=== PATIENT | female | born 1950 | race African-American/Black ===

== ENCOUNTER 2023-09-20 19:19 | Emergency (ER) | payer OTHER ==
[~2023-09-20] VITALS: Ht 162.6 cm; Wt 45.0 kg
[2023-09-20 19:28] VITALS: O2SAT 98
[2023-09-20 20:04] LABS: BASOPHILS % 0.8 % (0.0-2.0); EOSINOPHILS % 5.9 % (0.0-5.0); HEMATOCRIT. 29.3 % (36.0-48.0); HEMOGLOBIN. 9.5 g/dL (12.0-16.0); LYMPHOCYTES % 11.5 % (20.0-50.0); MEAN CORPUSCULAR HEMOGLOBIN 29.7 pg (28.0-32.0); MEAN CORPUSCULAR HGB CONC 32.3 g/dL (31.0-37.0); MEAN CORPUSCULAR VOLUME 91.8 fL (81.0-99.0); MEAN PLATELET VOLUME 8.7 fl (7.4-10.4); MONOCYTES % 3.3 % (2.0-8.0); NEUTROPHILS % 78.5 % (40.0-76.0); PLATELET 251 x1000/uL (130-400); RED BLOOD CELL COUNT 3.19 mill/uL (4.2-5.4); RED CELL DISTRIBUTION WIDTH 13.9 % (11.6-14.6); WHITE BLOOD COUNT 5.6 x1000/uL (4.5-11.0)
[2023-09-20 20:12] LABS: PROTHROMBIN TIME 10.3 sec (9.6-11.0)
[2023-09-20 20:16] LABS: ALANINE AMINOTRANSFERASE 28 IU/L (10-49); ALBUMIN 3.4 g/dL (3.2-4.8); ASPARTATE AMINOTRANSFERASE 28 IU/L (<34); BILIRUBIN TOTAL 0.2 mg/dL (0.1-1.0); CALCIUM 8.3 mg/dL (8.7-10.4); CARBON DIOXIDE 26 mEq/L (21-32); CHLORIDE 101 mEq/L (98-107); GLUCOSE 202 mg/dL (70-105); POTASSIUM 4.7 mEq/L (3.5-5.1); PROTEIN TOTAL 6.4 g/dL (6.0-8.3); SODIUM 137 mEq/L (136-145); UREA NITROGEN BLOOD 83 mg/dL (9-23)
[2023-09-20 20:43] LABS: CREATININE 5.6 mg/dL (0.6-1.0)
[2023-09-20] MEDS ORDERED: MORPHINE SULFATE 4 MG/ML CPJ (NOT FOR IM USE) IV ONE (23:00)
[2023-09-21] MEDS ORDERED: HYDRALAZINE 20MG/ML VIAL IV ONE (01:30)
[2023-09-21 01:42] VITALS: BP 186/63; PULSE 66; RESP 17; TEMP 98.6
== END 2023-09-21 01:47 | disposition short-term general hospital (02) ==
LOC: ER 19:19
DX: M25.552 Pain in left hip (principal); I25.2 Old myocardial infarction; I10 Essential (primary) hypertension; E11.9 Type 2 diabetes mellitus without complications; R51.9 Headache, unspecified; Z88.9 Allergy status to unspecified drugs, medicaments and biological substances; Z20.822 Contact with and (suspected) exposure to COVID-19; Z86.39 Personal history of other endocrine, nutritional and metabolic disease; W01.0XXA Fall on same level from slipping, tripping and stumbling without subsequent striking against object, initial encounter; Y92.008 Other place in unspecified non-institutional (private) residence as the place of occurrence of the external cause; Y99.8 Other external cause status
CPT/HCPCS: 99285; 96374; 70450; 71045; 87426; 80053; 85025; 85610; 36415; 73552; 72170; 73590; 96375; J2270; C9803; J0360